=== PATIENT | male | born 1995 | race Caucasian/White ===

== ENCOUNTER 2021-09-23 07:47 | Emergency (ER) | payer SELFPAY ==
[2021-09-23] MEDS ORDERED: Cephalexin 500 MG Cap PO ONE (07:48)
[2021-09-23] MEDS: Cephalexin 500 MG Cap ONE (08:35)
== END 2021-09-23 08:33 | disposition home or self-care (01) ==
LOC: DL.ED 07:47
DX: L08.9 Local infection of the skin and subcutaneous tissue, unspecified (principal); Z88.0 Allergy status to penicillin
CPT/HCPCS: 99283; A9270; 99282